=== PATIENT | female | born 1950 | race Caucasian/White ===

== ENCOUNTER 2018-09-01 04:50 | Outpatient (CLI) | payer SELFPAY | END 2018-09-01 23:59 | disposition home or self-care (01) | LOC: DIABETIC 04:50 | PROVIDERS: ATTEND Family Medicine | DX: E11.9 Type 2 diabetes mellitus without complications (principal) | CPT/HCPCS: G0108 ==

== ENCOUNTER 2018-09-30 00:45 | Outpatient (CLI) | payer MEDICARE, OTHER | END 2018-09-30 23:59 | disposition home or self-care (01) | LOC: DIABETIC 00:45 | PROVIDERS: ATTEND Family Medicine | DX: E11.9 Type 2 diabetes mellitus without complications (principal); Z79.84 Long term (current) use of oral hypoglycemic drugs; Z79.899 Other long term (current) drug therapy | CPT/HCPCS: G0108 ==

== ENCOUNTER 2019-01-13 01:18 | Outpatient (CLI) | payer MEDICARE, OTHER | END 2019-01-13 23:59 | disposition home or self-care (01) | LOC: DIABETIC 01:18 | PROVIDERS: ATTEND Family Medicine | DX: E11.9 Type 2 diabetes mellitus without complications (principal); Z71.3 Dietary counseling and surveillance | CPT/HCPCS: G0108 ==

== ENCOUNTER 2019-05-13 01:20 | Outpatient (CLI) | payer MEDICARE | END 2019-05-13 23:59 | disposition home or self-care (01) | LOC: DIABETIC 01:20 | PROVIDERS: ATTEND Family Medicine | DX: E11.9 Type 2 diabetes mellitus without complications (principal); Z79.899 Other long term (current) drug therapy | CPT/HCPCS: G0108 ==

== ENCOUNTER 2021-11-20 11:33 | Day surgery (SDC) | payer MEDICARE, OTHER ==
[2021-11-15 10:45] LABS: BASOPHILS % (AUTO) 0.4 % (0-1); EOSINOPHILS # (AUTO) 0.2 X10'3 (0-0.9); EOSINOPHILS % (AUTO) 2.3 % (0-6); HEMATOCRIT 42.2 % (35.0-45.0); HEMOGLOBIN 13.8 g/dl (12.0-16.0); LYMPHOCYTES # (AUTO) 3.9 X10'3 (1.1-4.8); LYMPHOCYTES % (AUTO) 38.5 % (21-51); MEAN CORPUSCULAR HEMOGLOBIN 29.4 PG (27.0-31.0); MEAN CORPUSCULAR HGB CONC 32.8 g/dL (33.0-36.5); MEAN CORPUSCULAR VOLUME 89.7 FL (78-98); MEAN PLATELET VOLUME 8.5 FL (7.4-10.4); MONOCYTES # (AUTO) 0.8 X10'3 (0-0.9); NEUTROPHILS # (AUTO) 5.2 X10'3 (1.8-7.7); NEUTROPHILS % (AUTO) 50.8 % (42-75); PLATELET COUNT 218 X10'3 (140-440); RED CELL DISTRIBUTION WIDTH 13.4 % (11.5-14.5); WHITE BLOOD COUNT 10.2 X10'3 (4.5-11.0)
[2021-11-15 10:51] LABS: ALBUMIN 3.9 G/DL (3.4-5.0); ANION GAP 9 (8-16); BLOOD UREA NITROGEN 22 MG/DL (7-18); BUN/CREATININE RATIO 21.2 (6.6-38.0); CALCIUM 9.4 MG/DL (8.5-10.1); CHLORIDE 105 MMOL/L (99-107); CREATININE 1.04 MG/DL (0.40-0.90); GLUCOSE 143 MG/DL (70-104); POTASSIUM 3.5 MMOL/L (3.5-5.1); SODIUM 141 MMOL/L (135-145); TOTAL CARBON DIOXIDE 27.2 MMOL/L (24-32); eGFR 52 ML/MIN
[2021-11-15 10:55] LABS: APTT 26 SECONDS (22-32)
[2021-11-20] VITALS (10 sets, daily range): BP systolic 106–157; BP diastolic 58–78
[~2021-11-20] VITALS: Ht 167.6 cm; Wt 92.1 kg
[2021-11-20] MEDS ORDERED: normal saline 1,000 ML IV SCH (12:05)
[2021-11-20] MEDS ORDERED: LORazepam 0.5 MG tablet PO PRN (12:05)
[2021-11-20] MEDS ORDERED: diphenhydrAMINE 25mg capsule PO PRN (12:10)
[2021-11-20] MEDS ORDERED: TRAZ150T78 PO (12:11)
[2021-11-20] MEDS ORDERED: ESCI-8 PO (12:11)
[2021-11-20] MEDS ORDERED: SAXA5TAB PO (12:11)
[2021-11-20] MEDS ORDERED: DAPA5TAB PO (12:11)
[2021-11-20] MEDS ORDERED: LISI1TAB51 PO (12:11)
[2021-11-20] MEDS ORDERED: LEVO100T9 PO (12:11)
[2021-11-20] MEDS ORDERED: ATOR40TA72 PO (12:11)
[2021-11-20] MEDS ORDERED: ANAS1TAB10 PO (12:11)
[2021-11-20] MEDS ORDERED: ASPI-1071 PO (12:13)
[2021-11-20] MEDS ORDERED: verapamil 2.5 mg/ml inj IV ONE (12:34)
[2021-11-20] MEDS ORDERED: heparin 1,000unit/ml 10ml vial 10 ML ONE (12:34)
[2021-11-20] MEDS ORDERED: iohexol 350 MG/1 ML 200ml bottle ONE (12:34)
[2021-11-20] MEDS ORDERED: nitroGLYCERIN-Tridil 50MG/D5W 250 ML IV ONE (12:34)
[2021-11-20] MEDS ORDERED: heparin 1,000 UNITS/NS 500ml 500 ML ONE ×2 (12:35)
[2021-11-20] MEDS ORDERED: LIDOcaine 1% 30ml preserv. free vial ONE (12:36)
[2021-11-20] MEDS ORDERED: fentaNYL/PF 50MCG/1 ML 2ML syringe ONE (13:17)
[2021-11-20] MEDS ORDERED: midazolam 1 mg/ML 2ml injection ONE (13:17)
[2021-11-20] MEDS ORDERED: proCHLORperazine 10 MG/2 ml inj IV PRN (14:15)
[2021-11-20] MEDS ORDERED: ondansetron/PF 4mg/2ml inj IV PRN (14:15)
[2021-11-20] MEDS ORDERED: OXAZEpam 15mg capsule PO PRN (14:15)
[2021-11-20] MEDS ORDERED: nitroGLYCERIN 0.4mg SUBLingual tab SL PRN (14:15)
== END 2021-11-20 17:20 | disposition home or self-care (01) ==
LOC: SSTAY O 11:33
PROVIDERS: ATTEND Internal Medicine Interventional Cardiology
DX: R94.39 Abnormal result of other cardiovascular function study (principal); R07.89 Other chest pain; E11.9 Type 2 diabetes mellitus without complications; I11.9 Hypertensive heart disease without heart failure; E06.3 Autoimmune thyroiditis; E78.5 Hyperlipidemia, unspecified; Z79.82 Long term (current) use of aspirin; Z79.01 Long term (current) use of anticoagulants; Z79.899 Other long term (current) drug therapy; Z85.3 Personal history of malignant neoplasm of breast
CPT/HCPCS: 36415; 80048; 85025; 85610; 85730; 93005; 93458; 99152; C1769; C1894; J1644; J2250; J3010; J3490; J7030; Q0163; Q9967; 99153; A4620; A5120